=== PATIENT | male | born 1995 | race African-American/Black ===

== ENCOUNTER 2020-04-08 05:54 | Emergency (ER) | payer OTHER ==
[~2020-04-08] VITALS: Ht 167.6 cm; Wt 77.1 kg
--- NOTE | ~2020-04-08 | EMS ---
[address] [address] EMS Patient Care Report Name: [address] Room #: REG FREDDY Lundberg#: [id number] Admission: 04/08/20 Attend Phys: Discharge: Date of : [birth year] Report #: [id number] THIS REPORT FOR: //name// Report Transmitted: 04/08/2020 05:59 EMS Care Summary [place], [place]/[facility] Incident [id number] @ 04/08/2020 05:20 Incident Location [address] Male, 24 Years 1995 Patient Address [address] [place] [address] Patient History None Reported, Patient Allergies No known allergies, Patient Medications None Reported, Chief Complaint WEAK/AMS Disposition Transported No Lights/[place] Dispatch Reason Heart Problems/AICD Transported To [facility] Narrative RESPONDED TO HEART PROBLEMS AT APARTMENT. UPON ARRIVAL PT FOUND SITTING UPRIGHT ON FLOOR ALERT AND ORIENTED INITIALLY. PT REPORTS HE FEELS WEAK OVERALL AFTER TAKING CBD PILLS. PT REPORTS FEELING LIKE HE WAS IN AND OUT OF CONSICOUSNESS [address] [address] EMS Patient Care Report Name: [address] Room #: REG FREDDY Lundberg#: [id number] Admission: 04/08/20 Attend Phys: Discharge: Date of : [birth year] Report #: [id number] AND IS DROWSY. PT REPORTS HE THOUGHT HIS HEART WAS RACING. PT VITALS AND 3 LEAD OBTAINED. PT ASSISTED WALK TO COT. PT TRANSPORTED WITH NO CHANGES. PT SCOOTED TO BED AND HANDRAILS UP. UPON ARRIVING TO HOSPITAL BED BECAME DISORIENTED. PT DID NOT KNOW WHERE HE WAS OR WHY HE WAS THERE. REPORT GIVEN TO NURSE. Initial Vitals @05:42P: 103,CO: 3,SpO2: 97, @05:46P: 87,R: 14,BP: 125/68,CO: 2,SpO2: 95, @05:31P: 112,R: 16,BP: 157/104,Pain: 0/10,GCS: 14,Glucose: 154,CO: 2,SpO2: 100,Revised Trauma: 12, @05:32P: 100,SpO2: 99, Assessments @05:31MENTAL:Person Oriented,Time Oriented,Place Oriented,Event Oriented,SKIN:HEENT:Head/Face: No Abnormalities,Eyes: No Abnormalities,Neck/Airway: No Abnormalities,LUNG SOUNDS:General: No Abnormalities,Left Upper: No Abnormalities,Right Upper: No Abnormalities,Left Lower: No Abnormalities,Right Lower: No Abnormalities,ABDOMEN:General: No Abnormalities,Left Upper: No Abnormalities,Right Upper: No Abnormalities,Left Lower: No Abnormalities,Right Lower: No Abnormalities,PELVIS//GI:No Abnormalities,EXTREMITIES:Right Leg: Weakness,Left Leg: Weakness,Left Arm: Weakness,Right Arm: Weakness,PULSE:NEURO:No Abnormalities,@05:41MENTAL:Confused,Time Oriented,Person Oriented,SKIN:HEENT:Head/Face: No Abnormalities,Eyes: No Abnormalities,Neck/Airway: No Abnormalities,LUNG SOUNDS:General: No Abnormalities,Left Upper: No Abnormalities,Right Upper: No Abnormalities,Left Lower: No Abnormalities,Right Lower: No Abnormalities,ABDOMEN:General: No Abnormalities,Left Upper: No Abnormalities,Right Upper: No Abnormalities,Left Lower: No Abnormalities,Right Lower: No Abnormalities,PELVIS//GI:No Abnormalities,EXTREMITIES:Right Leg: Weakness,Right Arm: Weakness,Left Arm: Weakness,Left Leg: Weakness,PULSE:NEURO:No Abnormalities, Impression Generalized Weakness Procedures @05:31ALS AssessmentResponse: UnchangedSucceeded@05:353-Lead ECGResponse: UnchangedSucceeded Timeline 05:19,Call Received 05:19,Dispatch Notified 05:20,Dispatched 05:26,En Route 05:26,On Scene [facility] [address] [place] [address] EMS Patient Care Report Name: [address] Room #: REG FREDDY Lundberg#: [id number] Admission: 04/08/20 Attend Phys: Discharge: Date of : [birth year] Report #: [id number] 05:31,At Patient 05:31,BP: 157/104 M,PULSE: 112,RR: 16 R,SPO2: 100 Ox,ETCO2: ,B,PAIN: 0,GCS: 14, 05:31,ALS Assessment,Response: UnchangedSucceeded, 05:32,BP: / M,PULSE: 100,RR: R,SPO2: 99 Ox,ETCO2: ,BG: ,PAIN: ,GCS: , 05:35,3-Lead ECG,Response: UnchangedSucceeded, 05:42,BP: / M,PULSE: 103,RR: R,SPO2: 97 Ox,ETCO2: ,BG: ,PAIN: ,GCS: , 05:46,Depart Scene 05:46,BP: 125/68 M,PULSE: 87,RR: 14 R,SPO2: 95 Ox,ETCO2: ,BG: ,PAIN: ,GCS: , 05:50,At Destination 06:09,Call Closed Disclaimer v1.1 Copyright 2020 [employer] This EMS Care Summary contains data elements from the applicable legal record (which may be displayed differently). It is designed to provide pertinent information for the following purposes: continuity of care, clinical quality, and state data reporting. The complete legal record is available to ED staff and administrators of the receiving hospital in [employer]'s Patient Tracker. All data is provided "as is."
[2020-04-08 06:38] LABS: HEMATOCRIT 44.1 % (42.0-52.0); MCHC 31.7 g/dL (28.0-37.0); RBC 5.38 mil/uL (4.50-6.00); RDW 13.6 % (10.5-14.5); WBC 5.8 thou/uL (4.0-11.0)
[2020-04-08 06:54] LABS: CALCIUM 8.9 mg/dL (8.5-10.1); CREATININE 1.3 mg/dL (0.7-1.3); POTASSIUM 4.1 mmol/L (3.5-5.1)
[2020-04-08 07:00] LABS: ALBUMIN 3.8 g/dL (3.4-5.0); TOTAL BILIRUBIN 1.2 mg/dL (0.2-1.0)
--- NOTE | 2020-04-08 07:46 | EKG ---
[address] [address] ELECTROCARDIOGRAM REPORT Name: [address] Room #: REG FREDDY Lundberg#: [id number] Admission: 04/08/20 Attend Phys: Discharge: Date of : [birth year] Report #: [id number] [facility] ED Test Date: 2020-04-08 Test Time: 07:24:55 Pat Name: [address] Department: Room: Gender: [employer]: [facility] : 1995 Requested By: Miguel Hogue Order Number: [id number] MD: Bayron Felix Measurements Intervals [place] Rate: 86 P: 44 DC: 151 QRS: 55 QRSD: 92 T: 4 QT: 355 QTc: 425 Interpretive Statements Sinus rhythm Probable left atrial enlargement No previous ECG available for comparison Electronically Signed On 04-08-2020 7:46:04 [employer] ADMINISTRATOR by Bayron Felix [email or web address] <ELECTRONICALLY SIGNED> By: Bayron Felix MD, [facility] 04/08/20 0746 0724 3 Bayron Felix MD, FACC /EPI
[2020-04-08 10:47] VITALS: BP 115/61
--- NOTE | 2020-04-08 14:48 | EKG ---
[place] [address] [facility] [place] [address] ELECTROCARDIOGRAM REPORT Name: [address] Room #: DEP Toño#: [id number] Admission: 04/08/20 Attend Phys: Discharge: 04/08/20 Date of : [birth year] Report #: [id number] [facility] ED Test Date: 2020-04-08 Test Time: 09:48:32 Pat Name: [address] Department: Room: Gender: Digital Pre Press Operator: Mansi VANCE : 1995 Requested By: Miguel Hogue Order Number: [id number] MD: Bayron Felix Measurements Intervals [place] Rate: 83 P: 40 RI: 144 QRS: 53 QRSD: 94 T: 2 QT: 360 QTc: 423 Interpretive Statements Sinus rhythm Probable left atrial enlargement J Point elevation V2-v3 Borderline T abnormalities, inferior leads Compared to ECG 04/08/2020 07:24:55 T-wave abnormality now present Electronically Signed On 04-08-2020 14:47:50 FORCE DISPATCHER by Bayron Felix [email or web address] <ELECTRONICALLY SIGNED> By: Bayron Felix MD, [facility] 04/08/20 1447 7 7 Bayron Felix MD, FACC /EPI
== END 2020-04-08 11:02 | disposition home or self-care (01) ==
LOC: ER 05:54
PROVIDERS: Emergency Medicine
DX: T40.7X1A Poisoning by cannabis (derivatives), accidental (unintentional), initial encounter (principal); R41.82 Altered mental status, unspecified; Y92.89 Other specified places as the place of occurrence of the external cause